=== PATIENT | male | born 1955 | race African-American/Black ===

== ENCOUNTER 2017-08-05 11:11 | Emergency (ER) | payer SELFPAY ==
[~2017-08-05] VITALS: Ht 167.6 cm; Wt 80.0 kg
[2017-08-05] MEDS ORDERED: FAMOTIDINE 20MG/2ML VIAL IV ONE (11:30)
[2017-08-05] MEDS ORDERED: METOCLOPRAMIDE HCL 10MG/2ML VIAL IV ONE (11:30)
[2017-08-05 12:30] LABS: BASOPHILS % 0.5 % (0.0-2.0); EOSINOPHILS % 1.1 % (0.0-5.0); HEMATOCRIT. 40.2 % (42.0-52.0); HEMOGLOBIN. 13.8 g/dL (14.0-18.0); LYMPHOCYTES % 19.4 % (20.0-50.0); MEAN CORPUSCULAR HEMOGLOBIN 32.1 pg (28.0-32.0); MEAN CORPUSCULAR VOLUME 93.4 fL (80.0-94.0); MONOCYTES % 7.3 % (2.0-8.0); NEUTROPHILS % 71.7 % (40.0-76.0); PLATELET 248 x1000/uL (130-400)
[2017-08-05 12:34] LABS: CHLORIDE 104 mEq/L (98-107)
[2017-08-05 12:37] LABS: PROTHROMBIN TIME 10.6 sec (9.4-11.6)
[2017-08-05 15:12] VITALS: BP 145/69
== END 2017-08-05 15:13 | disposition home or self-care (01) ==
LOC: ER 11:11
DX: R07.0 Pain in throat (principal); F17.200 Nicotine dependence, unspecified, uncomplicated; F10.129 Alcohol abuse with intoxication, unspecified; R09.89 Other specified symptoms and signs involving the circulatory and respiratory systems
CPT/HCPCS: 36415; 70360; 80053; 83036; 83690; 85025; 85610; 93005; 96374; 96375; 99285; G0482; J2765; J3490